=== PATIENT | female | born 1950 | race African-American/Black ===

== ENCOUNTER 2022-07-05 16:29 | Inpatient (IN) | payer MEDICARE, OTHER ==
[~2022-07-05] VITALS: Ht 170.2 cm; Wt 130.2 kg
--- NOTE | 2022-07-05 16:52 | NUR ---
PT BIBRA FROM SNF TO ER BED 05 PER PATTERNMAKER REPORT, RECIEVE 911 CALL FROM FACILITY. NOTED ALTERED MENTAL STATUS, ONSET AT 1400 TODAY. PT VERBALLY RESPONSIVE., AAOX3. GOWNED AND PLACED ON MONITOR. VSS. AWAITING MD MARTINEZ.
--- NOTE | 2022-07-05 17:09 | NUR ---
DR LOPEZ AT BEDSIDE FOR EVAL.
--- NOTE | 2022-07-05 17:14 | NUR ---
IV LINE STARTED BLOOD DRAWN AND SENT TO LAB.
--- NOTE | 2022-07-05 17:17 | NUR ---
PT TO RADIOLOGY FOR HEAD CT SCAN VIA [facility].
[2022-07-05] MEDS ORDERED: IV NS 0.9% 1,000 ML BAG IV ONE (17:30)
[2022-07-05 17:39] LABS: BASOPHILS % (AUTO) 0.2 % (0.0-2.0); EOSINOPHILS % (AUTO) 0.4 % (0.0-6.0); HEMATOCRIT 34 % (33-45); HEMOGLOBIN 10.8 g/dL (11.5-14.8); LYMPHOCYTES # (AUTO) 0.7 K/uL (0.8-4.8); LYMPHOCYTES % (AUTO) 11.7 % (20.0-44.0); MEAN CORPUSCULAR HGB CONC 31 g/dl (31.0-36.0); MEAN CORPUSCULAR VOLUME 88 fL (82-100); MONOCYTES # (AUTO) 0.8 K/uL (0.1-1.30); MONOCYTES % (AUTO) 13.6 % (2.0-12.0); NEUTROPHILS # (AUTO) 4.4 K/uL (1.8-8.9); NEUTROPHILS % (AUTO) 74.1 % (43.0-81.0); PLATELET COUNT (AUTO) 423 K/uL (150-450); RED BLOOD CELL COUNT(AUTO) 3.91 MIL/uL (4.0-5.2); WHITE BLOOD COUNT (AUTO) 5.9 K/uL (4.3-11.0)
[2022-07-05] MEDS ORDERED: BENZ-13 PO (18:01)
[2022-07-05] MEDS ORDERED: GABA-532 PO (18:01)
[2022-07-05] MEDS ORDERED: OMEG-167 PO (18:01)
[2022-07-05] MEDS ORDERED: CRAN425C6 PO (18:01)
[2022-07-05] MEDS ORDERED: ACET-2605 PO (18:01)
[2022-07-05] MEDS ORDERED: DIPH25CA51 PO (18:01)
[2022-07-05] MEDS ORDERED: POLY15DR40 EACHEYE (18:01)
[2022-07-05] MEDS ORDERED: FLUT9.9S (18:01)
[2022-07-05] MEDS ORDERED: CLOP75TA15 PO (18:01)
[2022-07-05] MEDS ORDERED: OXYB10TA30 PO (18:01)
[2022-07-05] MEDS ORDERED: MULT-447 PO (18:01)
[2022-07-05] MEDS ORDERED: UMEC1BLS IH (18:01)
[2022-07-05] MEDS ORDERED: ASCO-352 PO (18:01)
[2022-07-05] MEDS ORDERED: POLY17PO4 PO (18:01)
[2022-07-05] MEDS ORDERED: ONDA4TAB5 PO (18:01)
[2022-07-05] MEDS ORDERED: MAGN400T26 PO (18:01)
--- NOTE | 2022-07-05 18:16 | NUR ---
URINE SAMPLE COLLECTED AND SENT TO LAB
[2022-07-05 18:30] LABS: ALANINE AMINOTRANSFERASE 22 U/L (12-78); ALBUMIN 3.1 g/dL (3.4-5.0); ALKALINE PHOSPHATASE 97 U/L (46-116); ASPARTATE AMINOTRANSFERASE 29 U/L (15-37); BILIRUBIN,DIRECT 0.1 mg/dL (0.0-0.2); BILIRUBIN,TOTAL 0.3 mg/dL (0.2-1.0); CALCIUM, SERUM 9.4 mg/dL (8.5-10.1); CARBON DIOXIDE 27 mmol/L (21-32); CHLORIDE 95 mmol/L (98-107); GLUCOSE 151 mg/dL (74-106); POTASSIUM 3.9 mmol/L (3.5-5.1); SODIUM SERUM 131 mmol/L (136-145); UREA NITROGEN, BLOOD 8 mg/dL (7-18)
[2022-07-05 19:49] LABS: COLOR,URINE YELLOW (YELLOW)
[2022-07-05 19:50] LABS: LEUKOCYTE ESTERASE ,URINE 3+ (NEGATIVE); NITRITE, URINE NEGATIVE (NEGATIVE); PROTEIN,URINE 2+ mg/dl (NEGATIVE); UGLUCOSE NEGATIVE (NEGATIVE)
[2022-07-05 19:51] LABS: BILIRUBIN,URINE NEGATIVE (NEGATIVE); UROBILINOGEN,URINE 0.2 EU/dL (0.2)
[2022-07-05 19:54] LABS: RBC,URINE 51-80 /HPF (0-2); WBC,URINE 81-100 /HPF (0-3)
[2022-07-05 19:55] LABS: BACTERIA,URINE 3+ /HPF (None Seen)
[2022-07-05] MEDS ORDERED: IV NS 0.9% 1,000 ML IV ONE (20:30)
[2022-07-05] MEDS ORDERED: CEFTRIAXONE 1GM BAG (ER ONLY) 1 GM/50 ML PIGGYBACK IV ONE (20:30)
[2022-07-05] MEDS ORDERED: MORPHINE SULFATE INJ 4 MG/ML DISP.SYRIN ONE (20:44)
[2022-07-05] MEDS ORDERED: CEFTRIAXONE 1GM BAG (ER ONLY) 50 ML IV ONE (20:44)
[2022-07-05] MEDS ORDERED: ONDANSETRON HCL/PF 4 MG/2 ML VIAL ONE (20:44)
--- NOTE | 2022-07-05 20:49 | NUR ---
INFLUENZA SWAB DONE AND SENT TO LAB
[2022-07-05] MEDS ORDERED: MORPHINE SULFATE INJ 2 MG/ML DISP.SYRIN IV ONE (21:00)
[2022-07-05] MEDS ORDERED: ONDANSETRON HCL/PF 4 MG/2 ML VIAL IV ONE ×2 (21:00)
--- NOTE | 2022-07-05 22:17 | NUR ---
REPORT GIVEN TO RN
--- NOTE | 2022-07-05 22:18 | NUR ---
PATIENT BEING TRANSFFERRED TO 308
[2022-07-05] MEDS ORDERED: diphenhydrAMINE HCL 25 MG CAPSULE PO PRN (22:30)
[2022-07-05] MEDS ORDERED: BENZONATATE 100 MG CAPSULE PO PRN (22:30)
[2022-07-05] MEDS ORDERED: POLYETHYLENE GLYCOL 3350 17 GM POWD.PACK PO PRN (22:30)
[2022-07-05] MEDS ORDERED: ACETAMINOPHEN ES 500 MG TABLET PO PRN (22:30)
--- NOTE | 2022-07-05 22:34 | NUR ---
RN NOTE; RECEIVED PATIENT FROM ER WITH LALY 2-3,JOLENE WELL ON RM AIR,NO SIGN SOB/DISTRESS NOTED,NO COMPLAIN OF PAIN/DISCOMFORT AT THIS TIME,IV ACCESS ON LAC 20G PATENT AND INTACT,PT WAS OREINT THE RM AND VERBALLY UNDERSTANDING,SAFETY MEASURE IN PLACE,CALL LIGHT WITHIN REACH,WILL CONTINUE TO MONITOR.
[2022-07-05] MEDS ORDERED: IV NS 0.9% 1,000 ML IV PRN (23:00)
[2022-07-05] MEDS ORDERED: ACETAMINOPHEN 325 MG TABLET PO PRN (23:00)
[2022-07-05] MEDS ORDERED: MAG HYDROX/AL HYDROX/SIMETH 30 ML UDC PO PRN (23:00)
[2022-07-05] MEDS ORDERED: Z GUARD REMEDY 4 OZ OINT TP PRN (23:00)
[2022-07-05] MEDS ORDERED: ZOLPIDEM TARTRATE 5 MG TABLET PO PRN (23:00)
[2022-07-05] MEDS ORDERED: DEXTROSE 50%-WATER 50 ML DISP.SYRIN IV PRN (23:00)
[2022-07-05] MEDS ORDERED: MAGNESIUM HYDROXIDE 30 ML UDC PO PRN (23:00)
[2022-07-05] MEDS ORDERED: ONDANSETRON HCL/PF 4 MG/2 ML VIAL IVP PRN (23:00)
[2022-07-05] MEDS: ENOXAPARIN SODIUM 40 MG/0.4 ML DISP.SYRIN SQ SCH (23:59)
[2022-07-06] VITALS: BP 132/72
[2022-07-06 04:00] VITALS: BP 128/75
[2022-07-06 06:20] LABS: BASOPHILS % (AUTO) 0.3 % (0.0-2.0); EOSINOPHILS % (AUTO) 0.2 % (0.0-6.0); HEMATOCRIT 32 % (33-45); HEMOGLOBIN 10.1 g/dL (11.5-14.8); LYMPHOCYTES # (AUTO) 1.3 K/uL (0.8-4.8); LYMPHOCYTES % (AUTO) 22.5 % (20.0-44.0); MEAN CORPUSCULAR HGB CONC 31 g/dl (31.0-36.0); MEAN CORPUSCULAR VOLUME 90 fL (82-100); MONOCYTES # (AUTO) 0.9 K/uL (0.1-1.30); MONOCYTES % (AUTO) 14.6 % (2.0-12.0); NEUTROPHILS # (AUTO) 3.6 K/uL (1.8-8.9); NEUTROPHILS % (AUTO) 62.4 % (43.0-81.0); PLATELET COUNT (AUTO) 365 K/uL (150-450); WHITE BLOOD COUNT (AUTO) 5.8 K/uL (4.3-11.0)
--- NOTE | 2022-07-06 06:21 | NUR ---
RN CLOSING NOTE; PATIENT IN BED SLEEPING BUT EASY TO AROUSED,AOX3 ABLE TO MAKE NEEDS KNOWN,JOLENE WELL ON RM AIR,NO SIGN SOB/DISTRESS NOTED,NO COMPLAINED OF PAIN/DISCOMFORT DURING SHIFT,IV ACCESS ON LH 20G PATENT AND INTACT,RUNNING NS @75ML/HR,JOLENE WELL,DUE MEDS GIVEN ORDER,ALL NEEDS ATTENDED,SAFETY MEASURE IN PLACE,CALL LIGHT WITHIN REACH,WILL ENDORSED TO NEXT SHIFT.
[2022-07-06 06:53] LABS: CALCIUM, SERUM 8.5 mg/dL (8.5-10.1); CARBON DIOXIDE 25 mmol/L (21-32); CHLORIDE 100 mmol/L (98-107); CREATININE 0.9 mg/dL (0.6-1.3); GLUCOSE 110 mg/dL (74-106); MAGNESIUM 2.2 mg/dL (1.8-2.4); PHOSPHORUS 3.6 mg/dL (2.5-4.9); POTASSIUM 3.8 mmol/L (3.5-5.1); SODIUM SERUM 134 mmol/L (136-145); UREA NITROGEN, BLOOD 8 mg/dL (7-18)
--- NOTE | 2022-07-06 07:15 | NUR ---
RN open NOTE; PATIENT IN BED SLEEPING BUT EASY TO AROUSED,AOX3 ABLE TO MAKE NEEDS KNOWN,TOLERATING WELL ON ROOM AIR,NO SIGN SOB/DISTRESS NOTED,NO COMPLAINED OF PAIN/DISCOMFORT DURING SHIFT,IV ACCESS ON LH 20G PATENT AND INTACT,RUNNING NS @75ML/HR,JOLENE WELL,SAFETY MEASURE IN PLACE,CALL LIGHT WITHIN REACH,WILL COMNTINUE TO MONITOR
[2022-07-06 07:43] LABS: HDL CHOLESTEROL 38 mg/dL (40-60); LDL 93 mg/dL (0-99); TRIGLYCERIDES 86 mg/dL (30-150)
[2022-07-06 08:00] VITALS: BP 123/65
[2022-07-06 08:10] LABS: CHOLESTEROL 148 mg/dL (<200)
[2022-07-06] MEDS: BLOOD SUGAR DIAGNOSTIC 1 EACH STRIP IN SCH ×4 (08:18→22:15)
[2022-07-06] MEDS: INSULIN REGULAR, HUMAN 100 UNIT/ML 3 ML VIAL SQ PRN ×3 (08:19→22:19)
[2022-07-06] MEDS: MULTIVIT W/MINERALS 1 TAB TABLET PO SCH (08:37)
[2022-07-06] MEDS: PANTOPRAZOLE 40 MG VIAL IV SCH (08:37)
[2022-07-06] MEDS: ASCORBIC ACID 500 MG TABLET PO SCH (08:37)
[2022-07-06] MEDS: MAGNESIUM OXIDE 400 MG TABLET PO SCH ×2 (08:37→16:13)
[2022-07-06] MEDS: CLOPIDOGREL BISULFATE 75 MG TABLET PO SCH (08:37)
[2022-07-06] MEDS: POLYVINYL ALCOHOL 15 ML BOTTLE EACHEYE SCH ×2 (08:39→16:13)
[2022-07-06] MEDS ORDERED: Medication Not On Formulary EA (Cranberry Extract (Cranberry) 425 MG) PO SCH (09:00)
[2022-07-06] MEDS ORDERED: Medication Not On Formulary EA (Omega-3 Fatty Acids/Fish Oil (Fish Oil 1,000 Mg Softgel) PO SCH (09:00)
[2022-07-06] MEDS ORDERED: GUAIFENESIN/D-METHORPHAN HB 5 ML UDC PO PRN (11:30)
[2022-07-06] MEDS: GUAIFENESIN LA 600 MG TABLET.SA PO SCH ×2 (11:55→20:51)
[2022-07-06] MEDS: methylPREDNISolone SOD SUCC 125 MG/2ML VIAL IV SCH ×2 (12:30→20:51)
[2022-07-06] MEDS: ALBUTEROL FS 2.5 MG/3 ML VIAL.NEB NEB SCH ×2 (14:04→19:49)
[2022-07-06] MEDS: IPRATROPIUM NEB FS 0.5 MG/2.5 ML AMPUL.NEB NEB SCH ×2 (14:04→19:49)
[2022-07-06 15:31] LABS: LYMPHOCYTES % (MANUAL) 19 % (16-48); MONOCYTES % (MANUAL) 9 % (0-11.0); NEUTROPHILS % (MANUAL) 72 (42-76)
[2022-07-06 16:00] VITALS: BP 131/64
[2022-07-06] MEDS: OSELTAMIVIR PHOSPHATE 75 MG CAPSULE PO SCH (16:13)
[2022-07-06] MEDS: GABAPENTIN 100 MG CAPSULE PO SCH (17:34)
--- NOTE | 2022-07-06 18:29 | NUR ---
RN CLOSING NOTE PATIENT IN BED ,AOX3 ABLE TO MAKE NEEDS KNOWN,ON O2 2L/M VIA N/C TOLERATING WELL ,NO SIGN SOB/DISTRESS NOTED,NO COMPLAINED OF PAIN/DISCOMFORT DURING SHIFT,IV ACCESS ON LH 20G PATENT AND INTACT,ALL,DUE MEDS GIVEN ORDER,ALL NEEDS ATTENDED,SAFETY MEASURE IN PLACE,CALL LIGHT WITHIN REACH,WILL ENDORSED TO NEXT SHIFT.
--- NOTE | 2022-07-06 19:30 | NUR ---
NURSING SPECIALIST OPENING NOTE RECEIVED PATIENT IN BED, WITH HOB ELEVATED, AWAKE, ALERT AND ORIENTED X4. ABLE TO COMMUNICATE NEEDS WITH THE STAFFS. AFEBRILE AND NOT IN ANY FORM OF ACUTE DISTRESS. ON O2 INHALATION VIA NASAL CANNULA AT 2LPM. MAINTAINED ON DROPLET ISOLATION D/T (+) INFLUENZA VIRUS. WITH IV ACCESS ON L HAND-SL. SAFETY MEASURES IN PLACE. KEPT BED IN LOCKED AND IN LOW POSITION TO REDUCE INJURY. SIDE RAILS UP X2. ADVISED TO USE THE CALL LIGHT WHEN IN NEED OF ASSISTANCE.
[2022-07-06] MEDS: CEFTRIAXONE 1 G in IV D5W 50 ML IV SCH (20:50)
[2022-07-06] MEDS: ENOXAPARIN SODIUM 40 MG/0.4 ML DISP.SYRIN SQ SCH (20:52)
[2022-07-07] MEDS: methylPREDNISolone SOD SUCC 125 MG/2ML VIAL IV SCH ×3 (04:43→20:57)
[2022-07-07] MEDS: BLOOD SUGAR DIAGNOSTIC 1 EACH STRIP IN SCH ×4 (06:31→22:18)
[2022-07-07] MEDS: INSULIN REGULAR, HUMAN 100 UNIT/ML 3 ML VIAL SQ PRN ×4 (06:32→22:21)
--- NOTE | 2022-07-07 06:41 | NUR ---
HELPER SHEAR OPERATOR CLOSING NOTE PATIENT IN BED, WITH HOB ELEVATED, ASLEEP BUT EASY TO AROUSE AND RESPONSIVE. ABLE TO COMMUNICATE NEEDS WITH THE STAFFS. AFEBRILE AND NOT IN ANY FORM OF ACUTE DISTRESS. ON O2 INHALATION VIA NASAL CANNULA AT 2LPM. ON TELE MONITORING WITH CURRENT READING OF SR 74 WITH BBB AND PAC MAINTAINED ON DROPLET ISOLATION D/T (+) INFLUENZA A VIRUS. WITH IV ACCESS ON L HAND-SL. MONITORED FOR ANY S/SX. OF HYPO/HYPERGLYCEMIA. MEDICATED ORDERED. ON IV ATB, MONITORED FOR ANY ADVERSE REACTION. TURNED AND REPOSITIONED EVERY 2 HOURS AND TOLERATED TO PROMOTE PROPER CIRCULATION AND COMFORT. SAFETY MEASURES IN PLACE. KEPT BED IN LOCKED AND IN LOW POSITION TO REDUCE INJURY. SIDE RAILS UP X2. ADVISED TO USE THE CALL LIGHT WHEN IN NEED OF ASSISTANCE. ALL NURSING NEEDS ATTENDED. ENDORSED TO INCOMING SHIFT FOR CONTINUITY OF CARE.
[2022-07-07 06:49] LABS: BASOPHILS % (AUTO) 0.1 % (0.0-2.0); HEMATOCRIT 32 % (33-45); HEMOGLOBIN 10.3 g/dL (11.5-14.8); LYMPHOCYTES # (AUTO) 0.8 K/uL (0.8-4.8); LYMPHOCYTES % (AUTO) 25.1 % (20.0-44.0); MEAN CORPUSCULAR HGB CONC 32 g/dl (31.0-36.0); MEAN CORPUSCULAR VOLUME 88 fL (82-100); MONOCYTES # (AUTO) 0.4 K/uL (0.1-1.30); NEUTROPHILS # (AUTO) 2.1 K/uL (1.8-8.9); NEUTROPHILS % (AUTO) 63.8 % (43.0-81.0); PLATELET COUNT (AUTO) 429 K/uL (150-450); RED BLOOD CELL COUNT(AUTO) 3.64 MIL/uL (4.0-5.2); WHITE BLOOD COUNT (AUTO) 3.4 K/uL (4.3-11.0)
[2022-07-07 07:00] VITALS: BP 131/70
[2022-07-07 07:29] LABS: CALCIUM, SERUM 9.6 mg/dL (8.5-10.1); CREATININE 0.9 mg/dL (0.6-1.3); MAGNESIUM 2.6 mg/dL (1.8-2.4); PHOSPHORUS 3.6 mg/dL (2.5-4.9); POTASSIUM 4.4 mmol/L (3.5-5.1)
[2022-07-07] MEDS: ALBUTEROL FS 2.5 MG/3 ML VIAL.NEB NEB SCH ×3 (07:49→20:51)
[2022-07-07] MEDS: IPRATROPIUM NEB FS 0.5 MG/2.5 ML AMPUL.NEB NEB SCH ×3 (07:49→20:51)
--- NOTE | 2022-07-07 07:50 | NUR ---
RN OPENING NOTE PATIENT AWAKE IN BED RESTING AT THE MOMENT A/O X 3. NO S/S OF PAIN NOTED AT THIS TIME. ON 2L OXYGEN VIA NC, NO DISTRESS OR SHORTNESS OF BREATH NOTED. IV ACCESS L HAND, INTACT, PATENT AND FLUSHING WELL. PATIENT HAVE A EXTERNAL SMALL ARMS REPAIRER WITH CURRENT READING OF SR WITH BBB, PAC AND HR OF 74L. FALL AND SAFETY MEASURES IN PLACE, BED ALARM ON, BED IN LOW AND LOCK POSITION, CALL LIGHT AND TABLE WITHIN EASY REACH, SIDE RAILS X2. WILL CONTINUE TO MONITOR.
[2022-07-07] MEDS: MAGNESIUM OXIDE 400 MG TABLET PO SCH ×2 (09:48→17:10)
[2022-07-07] MEDS: GUAIFENESIN LA 600 MG TABLET.SA PO SCH ×2 (09:48→20:57)
[2022-07-07] MEDS: MULTIVIT W/MINERALS 1 TAB TABLET PO SCH (09:48)
[2022-07-07] MEDS: ASCORBIC ACID 500 MG TABLET PO SCH (09:48)
[2022-07-07] MEDS: PANTOPRAZOLE 40 MG VIAL IV SCH (09:48)
[2022-07-07] MEDS: CLOPIDOGREL BISULFATE 75 MG TABLET PO SCH (09:49)
[2022-07-07] MEDS: OSELTAMIVIR PHOSPHATE 75 MG CAPSULE PO SCH ×2 (09:49→17:10)
[2022-07-07] MEDS: POLYVINYL ALCOHOL 15 ML BOTTLE EACHEYE SCH ×2 (09:50→17:00)
[2022-07-07 16:00] VITALS: BP 123/54
[2022-07-07] MEDS: GABAPENTIN 100 MG CAPSULE PO SCH (17:10)
--- NOTE | 2022-07-07 19:40 | NUR ---
RN CLOSING NOTE PATIENT AWAKE IN BED RESTING AT THE MOMENT A/O X 3. NO S/S OF PAIN NOTED AT THIS TIME. ON 2L OXYGEN VIA NC, NO DISTRESS OR SHORTNESS OF BREATH NOTED. IV ACCESS R HAND #22G, INTACT, PATENT AND FLUSHING WELL. PATIENT HAVE A EXTERNAL GEOLOGY ASSOCIATE WITH CURRENT READING OF SR WITH BBB AND HR OF 67. SCHEDULE MEDICATIONS ADMINISTERED. FALL AND SAFETY MEASURES IN PLACE, BED ALARM ON, BED IN LOW AND LOCK POSITION, CALL LIGHT AND TABLE WITHIN EASY REACH, SIDE RAILS X2. WILL ENDORSE TO NATIONAL OPELINT ANALYST.
[2022-07-07 20:00] VITALS: BP 117/64
[2022-07-07] MEDS: CEFTRIAXONE 1 G in IV D5W 50 ML IV SCH (20:12)
[2022-07-07] MEDS: MUPIROCIN OINT 2% 22 GM TUBE NS SCH (20:59)
[2022-07-07] MEDS: ENOXAPARIN SODIUM 40 MG/0.4 ML DISP.SYRIN SQ SCH (20:59)
[2022-07-07] MEDS: INSULIN GLARGINE, 100 UNIT/ML CARTRIDGE SQ SCH (22:20)
[2022-07-08] VITALS: BP 120/71
[2022-07-08 04:00] VITALS: BP 135/75
[2022-07-08] MEDS: methylPREDNISolone SOD SUCC 125 MG/2ML VIAL IV SCH ×3 (04:45→20:18)
--- NOTE | 2022-07-08 06:30 | NUR ---
LOGGING CONTRACTOR CLOSING NOTE PATIENT IN BED, WITH HOB ELEVATED, ASLEEP BUT EASY TO AROUSE AND RESPONSIVE. ABLE TO COMMUNICATE NEEDS WITH THE STAFFS. AFEBRILE AND NOT IN ANY FORM OF ACUTE DISTRESS. BREATHING EVEN AND NON LABORED. ON O2 INHALATION VIA NASAL CANNULA AT 2LPM. NO C/O SOB/WHEEZING NOTED. MAINTAINED ON DROPLET ISOLATION D/T (+) INFLUENZA VIRUS. WITH IV ACCESS ON R HAND-SL. SAFETY MEASURES IN PLACE. MONITORED FOR S/SX. OF HYPO/HYPERGLYCEMIA. MEDICATED ORDERED. KEPT BED IN LOCKED AND IN LOW POSITION TO REDUCE INJURY. SIDE RAILS UP X2. ADVISED TO USE THE CALL LIGHT WHEN IN NEED OF ASSISTANCE. ALL NURSING NEEDS ATTENDED. ENDORSED TO INCOMING SHIFT FOR CONTINUITY OF CARE.
[2022-07-08] MEDS: BLOOD SUGAR DIAGNOSTIC 1 EACH STRIP IN SCH ×4 (06:41→21:31)
[2022-07-08] MEDS: INSULIN REGULAR, HUMAN 100 UNIT/ML 3 ML VIAL SQ PRN ×4 (06:48→21:26)
[2022-07-08] MEDS: ALBUTEROL FS 2.5 MG/3 ML VIAL.NEB NEB SCH ×3 (07:14→19:50)
[2022-07-08] MEDS: IPRATROPIUM NEB FS 0.5 MG/2.5 ML AMPUL.NEB NEB SCH ×3 (07:14→19:50)
--- NOTE | 2022-07-08 07:40 | NUR ---
AUTOMATIC TIRE TESTER OPENING NOTE RECEIVED PATIENT IN BED, WITH HOB ELEVATED, AWAKE, ALERT AND ORIENTED X4. ABLE TO COMMUNICATE NEEDS WITH THE STAFFS. AFEBRILE AND NOT IN ANY FORM OF ACUTE DISTRESS. BREATHING EVEN AND NON LABORED. NO C/O SOB/WHEEZING NOTED. MAINTAINED ON DROPLET ISOLATION D/T (+) INFLUENZA VIRUS. WITH IV ACCESS ON R HAND-SL. SAFETY MEASURES IN PLACE. KEPT BED IN LOCKED AND IN LOW POSITION TO REDUCE INJURY. SIDE RAILS UP X2. ADVISED TO USE THE CALL LIGHT WHEN IN NEED OF ASSISTANCE.
[2022-07-08 08:30] VITALS: BP 136/76
[2022-07-08] MEDS: OSELTAMIVIR PHOSPHATE 75 MG CAPSULE PO SCH ×3 (09:00→16:15)
[2022-07-08] MEDS: MULTIVIT W/MINERALS 1 TAB TABLET PO SCH (09:12)
[2022-07-08] MEDS: ASCORBIC ACID 500 MG TABLET PO SCH (09:12)
[2022-07-08] MEDS: CLOPIDOGREL BISULFATE 75 MG TABLET PO SCH (09:12)
[2022-07-08] MEDS: GUAIFENESIN LA 600 MG TABLET.SA PO SCH ×2 (09:12→20:17)
[2022-07-08] MEDS: MUPIROCIN OINT 2% 22 GM TUBE NS SCH ×2 (09:12→20:17)
[2022-07-08] MEDS: MAGNESIUM OXIDE 400 MG TABLET PO SCH ×2 (09:12→16:15)
[2022-07-08] MEDS: PANTOPRAZOLE 40 MG VIAL IV SCH (09:13)
[2022-07-08] MEDS: POLYVINYL ALCOHOL 15 ML BOTTLE EACHEYE SCH ×2 (09:15→16:23)
[2022-07-08 09:23] LABS: BASOPHILS % (AUTO) 0.1 % (0.0-2.0); HEMATOCRIT 34 % (33-45); HEMOGLOBIN 10.5 g/dL (11.5-14.8); LYMPHOCYTES # (AUTO) 0.9 K/uL (0.8-4.8); LYMPHOCYTES % (AUTO) 15.5 % (20.0-44.0); MEAN CORPUSCULAR HGB CONC 31 g/dl (31.0-36.0); MEAN CORPUSCULAR VOLUME 90 fL (82-100); MONOCYTES # (AUTO) 0.3 K/uL (0.1-1.30); MONOCYTES % (AUTO) 5.6 % (2.0-12.0); NEUTROPHILS # (AUTO) 4.5 K/uL (1.8-8.9); NEUTROPHILS % (AUTO) 78.8 % (43.0-81.0); PLATELET COUNT (AUTO) 391 K/uL (150-450); RED BLOOD CELL COUNT(AUTO) 3.73 MIL/uL (4.0-5.2); WHITE BLOOD COUNT (AUTO) 5.7 K/uL (4.3-11.0)
[2022-07-08 09:36] LABS: CALCIUM, SERUM 9.5 mg/dL (8.5-10.1); CARBON DIOXIDE 28 mmol/L (21-32); CHLORIDE 100 mmol/L (98-107); CREATININE 1.2 mg/dL (0.6-1.3); GLUCOSE 289 mg/dL (74-106); MAGNESIUM 2.3 mg/dL (1.8-2.4); PHOSPHORUS 2.6 mg/dL (2.5-4.9); POTASSIUM 4.4 mmol/L (3.5-5.1); SODIUM SERUM 134 mmol/L (136-145); UREA NITROGEN, BLOOD 20 mg/dL (7-18)
[2022-07-08] MEDS ORDERED: OSELTAMIVIR PHOSPHATE 75 MG CAPSULE PO SCH (10:00)
[2022-07-08 11:15] LABS: ABG BASE EXCESS 0.6 mmol/L; ABG PH 7.448 (7.350-7.450); ABG PO2 92.3 mmHg (75.0-100.0); COHb 0.2 % (0.5-1.5); MetHb 0.3 % (0.0-1.5); SITE, ABG Right Radial; VENT MODE, BG nasal cannula
--- NOTE | 2022-07-08 11:29 | NUR ---
placed into room air due to 100% spo2 on 2 lpm nasal cannula. Addendum: 07/08/22 at 1129 by LULY FRANK RT Amended: Links added.
[2022-07-08 12:00] VITALS: BP 123/75
[2022-07-08 16:33] VITALS: BP 127/72
[2022-07-08] MEDS: GABAPENTIN 100 MG CAPSULE PO SCH (17:02)
--- NOTE | 2022-07-08 18:10 | NUR ---
CAR MECHANIC CLOSING NOTE PATIENT AWAKE IN BED A/O X4. ON RA, TOLERATING WELL AT 95% SPO2 WITH HOB ELEVATED, PATIENT STATES "I AM GETTING BETTER AND THERE IS NO NEED FOR OXYGEN". ABLE TO COMMUNICATE NEEDS WITH THE STAFFS. AFEBRILE AND NOT IN ANY FORM OF ACUTE DISTRESS. BREATHING EVEN AND NON LABORED. NASAL CANNULA AT NO C/O SOB/WHEEZING NOTED. MAINTAINED ON DROPLET ISOLATION D/T (+) INFLUENZA VIRUS. WITH IV ACCESS ON R HAND-SL. SAFETY MEASURES IN PLACE. MONITORED FOR S/SX. OF HYPO/HYPERGLYCEMIA. DUE MEDS GIVEN. NO FURTHER COMPLAINS. KEPT BED IN LOCKED AND IN LOW POSITION TO REDUCE INJURY. SIDE RAILS UP X2. ADVISED TO USE THE CALL LIGHT WHEN IN NEED OF ASSISTANCE. ENDORSED.
--- NOTE | 2022-07-08 19:52 | NUR ---
RN OPENING NOTE; RECEIVED PT IN BED AAOX3,JOLENE WELL ON 2L 02 VIA NC SATING 97%,NO SIGN SOB/DISTRESS NOTED,NO COMPLAIN OF PAIN/DISCOMFORT AT THIS TIME,IV ACCESS ON RT HAND 22G PATENT AND INTACT,SAFETY MEASURE IN PLACE,CALL LIGHT WITHIN REACH,WILL CONTINUE TO MONITOR
[2022-07-08 20:00] VITALS: BP 127/59
[2022-07-08] MEDS: CEFTRIAXONE 1 G in IV D5W 50 ML IV SCH (20:16)
[2022-07-08] MEDS: ENOXAPARIN SODIUM 40 MG/0.4 ML DISP.SYRIN SQ SCH (20:20)
[2022-07-08] MEDS: INSULIN GLARGINE, 100 UNIT/ML CARTRIDGE SQ SCH (21:28)
[2022-07-09] MEDS: methylPREDNISolone SOD SUCC 125 MG/2ML VIAL IV SCH ×3 (04:56→20:55)
--- NOTE | 2022-07-09 06:17 | NUR ---
RN CLOSING NOTE; PATIENT IN BED AAOX4,JOLENE WELL ON 2L 02 VIA NC SATING 98%,NO SIGN SOB/DISTRESS NOTED,NO COMPLAIN OF PAIN/DISCOMFORT DURING SHIFT,DUE MEDS GIVEN ORDER,ALL NEEDS ATTENED,IV ACCESS ON RT HAND 22G PATENT AND INTACT,SAFETY MEASURE IN PLACE,CALL LIGHT WITHIN REACH,WILL ENDORSED TO NEXT SHIFT.
[2022-07-09] MEDS: INSULIN REGULAR, HUMAN 100 UNIT/ML 3 ML VIAL SQ PRN ×4 (06:38→21:19)
[2022-07-09] MEDS: BLOOD SUGAR DIAGNOSTIC 1 EACH STRIP IN SCH ×4 (06:41→21:11)
[2022-07-09 06:48] VITALS: BP 140/60
[2022-07-09 06:54] LABS: BASOPHILS % (AUTO) 0.1 % (0.0-2.0); HEMATOCRIT 33 % (33-45); HEMOGLOBIN 10.5 g/dL (11.5-14.8); LYMPHOCYTES # (AUTO) 1.5 K/uL (0.8-4.8); LYMPHOCYTES % (AUTO) 20.7 % (20.0-44.0); MEAN CORPUSCULAR HGB CONC 32 g/dl (31.0-36.0); MEAN CORPUSCULAR VOLUME 88 fL (82-100); MONOCYTES # (AUTO) 0.8 K/uL (0.1-1.30); MONOCYTES % (AUTO) 10.7 % (2.0-12.0); NEUTROPHILS # (AUTO) 4.9 K/uL (1.8-8.9); NEUTROPHILS % (AUTO) 68.5 % (43.0-81.0); PLATELET COUNT (AUTO) 435 K/uL (150-450); RED BLOOD CELL COUNT(AUTO) 3.77 MIL/uL (4.0-5.2); WHITE BLOOD COUNT (AUTO) 7.1 K/uL (4.3-11.0)
[2022-07-09] MEDS: ALBUTEROL FS 2.5 MG/3 ML VIAL.NEB NEB SCH ×3 (07:35→20:11)
[2022-07-09] MEDS: IPRATROPIUM NEB FS 0.5 MG/2.5 ML AMPUL.NEB NEB SCH ×3 (07:35→20:11)
--- NOTE | 2022-07-09 07:41 | NUR ---
OCEANOGRAPHER GEOLOGICAL CLOSING NOTE PATIENT AWAKE IN BED A/O X4. ON RA, TOLERATING WELL AT 96% SPO2 WITH HOB ELEVATED. ABLE TO COMMUNICATE NEEDS WITH THE STAFFS. AFEBRILE AND NOT IN ANY FORM OF ACUTE DISTRESS. BREATHING EVEN AND NON LABORED. NO C/O SOB/WHEEZING NOTED. MAINTAINED ON DROPLET ISOLATION D/T (+) INFLUENZA VIRUS. WITH IV ACCESS ON R HAND-SL. SAFETY MEASURES IN PLACE. MONITORED FOR S/SX. OF HYPO/HYPERGLYCEMIA. KEPT BED IN LOCKED AND IN LOW POSITION TO REDUCE INJURY. SIDE RAILS UP X2. ADVISED TO USE THE CALL LIGHT WHEN IN NEED OF ASSISTANCE. WILL MONITOR. Addendum: 07/09/22 at 0744 by YEVGENIY HARDWICK RN RN OPENING NOTES
[2022-07-09 08:00] LABS: CALCIUM, SERUM 9.9 mg/dL (8.5-10.1); CREATININE 0.9 mg/dL (0.6-1.3); MAGNESIUM 2.4 mg/dL (1.8-2.4); PHOSPHORUS 2.7 mg/dL (2.5-4.9); POTASSIUM 4.1 mmol/L (3.5-5.1)
[2022-07-09] MEDS: PANTOPRAZOLE 40 MG TABLET.DR PO SCH (08:09)
[2022-07-09 08:26] VITALS: BP 153/79
[2022-07-09] MEDS: ASCORBIC ACID 500 MG TABLET PO SCH (08:46)
[2022-07-09] MEDS: POLYVINYL ALCOHOL 15 ML BOTTLE EACHEYE SCH ×2 (08:46→17:54)
[2022-07-09] MEDS: MUPIROCIN OINT 2% 22 GM TUBE NS SCH ×2 (08:46→17:53)
[2022-07-09] MEDS: GUAIFENESIN LA 600 MG TABLET.SA PO SCH ×2 (08:46→20:55)
[2022-07-09] MEDS: MAGNESIUM OXIDE 400 MG TABLET PO SCH ×2 (08:47→17:54)
[2022-07-09] MEDS: OSELTAMIVIR PHOSPHATE 75 MG CAPSULE PO SCH ×2 (08:47→17:54)
[2022-07-09] MEDS: CLOPIDOGREL BISULFATE 75 MG TABLET PO SCH (08:47)
[2022-07-09] MEDS: MULTIVIT W/MINERALS 1 TAB TABLET PO SCH (08:47)
[2022-07-09] MEDS: NITROFURANTOIN/MONOHYDRATE MACROCRYSTALS 100 MG CAPSULE PO SCH ×2 (12:09→20:55)
[2022-07-09] MEDS ORDERED: OSEL75CA PO (15:17)
[2022-07-09] MEDS ORDERED: NITR100C15 PO (15:17)
[2022-07-09] MEDS ORDERED: CEFU500T66 PO (15:17)
[2022-07-09] MEDS ORDERED: PRED20TA PO (15:17)
[2022-07-09 16:03] VITALS: BP 150/76
[2022-07-09] MEDS: GABAPENTIN 100 MG CAPSULE PO SCH (17:54)
--- NOTE | 2022-07-09 19:46 | NUR ---
ARTIFICIAL LIMB FITTER CLOSING NOTE PATIENT AWAKE IN BED A/O X4. ON RA, TOLERATING WELL AT 95% SPO2 WITH HOB ELEVATED. ABLE TO COMMUNICATE NEEDS WITH THE STAFFS. AFEBRILE AND NOT IN ANY FORM OF ACUTE DISTRESS. BREATHING EVEN AND NON LABORED. NASAL CANNULA AT NO C/O SOB/WHEEZING NOTED. MAINTAINED ON DROPLET ISOLATION D/T (+) INFLUENZA VIRUS. WITH IV ACCESS ON R HAND-SL. SAFETY MEASURES IN PLACE. MONITORED FOR S/SX. OF HYPO/HYPERGLYCEMIA. DUE MEDS GIVEN. NO FURTHER COMPLAINS. KEPT BED IN LOCKED AND IN LOW POSITION TO REDUCE INJURY. SIDE RAILS UP X2. ADVISED TO USE THE CALL LIGHT WHEN IN NEED OF ASSISTANCE. ENDORSED.
--- NOTE | 2022-07-09 19:47 | NUR ---
COIL CONNECTOR OPENING NOTES RECEIVED PATIENT LAYING IN BED AWAKE. A/O X4. BREATHING EVEN AND NON-LABORED ON ROOM AIR. NOT IN APPARENT DISTRESS. NO PAIN OR DISCOMFORT NOTED. ON TELE MONITOR READING SINUS BRADYCARDIA WITH BBB AT 43 BPM. HAS RIGHT HAND IV ACCESS #22G AND SALINE LOCKED. NO S/S OF INFILTRATION NOTED. CURRENTLY ON DROPLET ISOLATION D/T (+) INFLUENZA VIRUS. SAFETY PRECAUTIONS IN PLACE: BED LOW AND LOCKED, SIDE RAILS UP X2, CALL LIGHT WITHIN REACH. WILL CONTINUE POC.
[2022-07-09 20:00] VITALS: BP 145/76
[2022-07-09] MEDS: ENOXAPARIN SODIUM 40 MG/0.4 ML DISP.SYRIN SQ SCH (20:57)
[2022-07-09] MEDS: INSULIN GLARGINE, 100 UNIT/ML CARTRIDGE SQ SCH (21:17)
[2022-07-10] VITALS: BP 146/74
--- NOTE | 2022-07-10 04:00 | NUR ---
LOADER DEMOLDER NOTES PATIENT REFUSED V/S. EXPLAINED RISKS AND BENEFITS, STILL REFUSED.
[2022-07-10] MEDS: methylPREDNISolone SOD SUCC 125 MG/2ML VIAL IV SCH ×2 (04:12→13:23)
[2022-07-10] MEDS: BLOOD SUGAR DIAGNOSTIC 1 EACH STRIP IN SCH ×4 (06:34→22:06)
[2022-07-10] MEDS: INSULIN REGULAR, HUMAN 100 UNIT/ML 3 ML VIAL SQ PRN ×4 (06:39→22:09)
--- NOTE | 2022-07-10 06:42 | NUR ---
LOWER SCHOOL MUSIC TEACHER CLOSING NOTES PATIENT LAYING IN BED ASLEEP, EASY TO AROUSE. ABLE TO VERBALIZE NEEDS. STABLE THROUGHOUT THE SHIFT. NO SOB OR . DENIES DIZZINESS. AFEBRILE. ON TELE MONITOR READING SINUS BRADYCARDIA AT 38-45 BPM. RIGHT HAND IV ACCESS #22G INTACT, PATENT AND FLUSHING. ALL DUE MEDS GIVEN AND NEEDS ATTENDED. SAFETY PRECAUTIONS MAINTAINED. WILL ENDORSE TO NEXT SHIFT FOR JOHN.
[2022-07-10 08:00] VITALS: BP 158/80
[2022-07-10] MEDS: IPRATROPIUM NEB FS 0.5 MG/2.5 ML AMPUL.NEB NEB SCH ×3 (08:18→20:29)
[2022-07-10] MEDS: ALBUTEROL FS 2.5 MG/3 ML VIAL.NEB NEB SCH ×3 (08:18→20:29)
--- NOTE | 2022-07-10 08:23 | NUR ---
EMERGENCY MEDICAL TECH OPENING NOTE RECEIVED PATIENT IN BED, WITH HOB ELEVATED, AWAKE, ALERT AND ORIENTED X4. ABLE TO COMMUNICATE NEEDS WITH THE STAFF. AFEBRILE AND NOT IN ANY FORM OF ACUTE DISTRESS. BREATHING EVEN AND NON LABORED. NO C/O SOB/WHEEZING NOTED. MAINTAINED ON DROPLET ISOLATION D/T (+) INFLUENZA VIRUS. WITH IV ACCESS ON R HAND-SL. SAFETY MEASURES IN PLACE. KEPT BED IN LOCKED AND IN LOW POSITION TO REDUCE INJURY. SIDE RAILS UP X 3. ADVISED TO USE THE CALL LIGHT WHEN IN NEED OF ASSISTANCE. PT'S LUNG SOUNDS MOSTLY CLEAR TO AUSCULTATION WITH EXPIRATORY WHEEZE HEARD ON LEFT UPPER LOBE. POSITIVE PULSES IN ALL 4 EXTREMITIES. PT REPORTED HAVING , "FLUFFY, SOFT , BROWN STOOL ", YESTERDAY. WILL CONTINUE TO MONITOR PATIENT.
[2022-07-10] MEDS: MAGNESIUM OXIDE 400 MG TABLET PO SCH ×2 (09:09→17:32)
[2022-07-10] MEDS: NITROFURANTOIN/MONOHYDRATE MACROCRYSTALS 100 MG CAPSULE PO SCH ×2 (09:09→20:59)
[2022-07-10] MEDS: GUAIFENESIN LA 600 MG TABLET.SA PO SCH ×2 (09:09→20:59)
[2022-07-10] MEDS: OSELTAMIVIR PHOSPHATE 75 MG CAPSULE PO SCH ×2 (09:09→17:31)
[2022-07-10] MEDS: MULTIVIT W/MINERALS 1 TAB TABLET PO SCH (09:09)
[2022-07-10] MEDS: ASCORBIC ACID 500 MG TABLET PO SCH (09:10)
[2022-07-10] MEDS: CLOPIDOGREL BISULFATE 75 MG TABLET PO SCH (09:10)
[2022-07-10] MEDS: MUPIROCIN OINT 2% 22 GM TUBE NS SCH ×2 (09:11→20:59)
[2022-07-10] MEDS: POLYVINYL ALCOHOL 15 ML BOTTLE EACHEYE SCH ×2 (09:13→18:43)
[2022-07-10] MEDS: PANTOPRAZOLE 40 MG TABLET.DR PO SCH (10:34)
[2022-07-10 12:00] VITALS: BP 140/90
[2022-07-10 16:00] VITALS: BP 116/60
[2022-07-10] MEDS ORDERED: prednisoLONE 5 MG/5 ML UDC PO ONE (16:00)
[2022-07-10] MEDS: predniSONE 20 MG TABLET PO SCH (16:10)
[2022-07-10] MEDS: GABAPENTIN 100 MG CAPSULE PO SCH (17:31)
--- NOTE | 2022-07-10 18:58 | NUR ---
CAR PILOT CLOSING NOTE PATIENT LAYING IN BED AWAKE. ABLE TO VERBALIZE NEEDS. STABLE THROUGHOUT THE SHIFT. NO SOB OR . DENIES DIZZINESS. AFEBRILE. TELE MONITOR REMOVED PER MD ORDER. PATIENT HAS DISCHARGE ORDER TO RETURN HOME TO HER BOARD AND CARE FACILITY. BED AVAILABLE TOMORROW. AMBULANCE TRANSPORT PROPERTY ECONOMIST SCHEDULED FOR 9:00 AM TOMORROW.. RIGHT HAND IV ACCESS #22G INFILTRATED AND WAS REMOVED. md AWARE AND DISCONTINUED NEED FOR IV ACCESS. STEROID SWITCHED TO PREDNISONE 20 MG PO TABLET DAILY. ALL DUE MEDS GIVEN AND NEEDS ATTENDED. SAFETY PRECAUTIONS MAINTAINED. WILL ENDORSE TO NEXT SHIFT FOR JOHN.
--- NOTE | 2022-07-10 19:15 | NUR ---
MS RN OPENING NOTES RECEIVED PATIENT LAYING IN BED AWAKE, IN SEMI SILVA'S POSITION. A/O X3-4. BREATHING EVEN AND NON-LABORED ON ROOM AIR. NOT IN APPARENT DISTRESS. NO C/O PAIN OR DISCOMFORT. NO IV ACCESS AT THIS TIME, HOSPITALIST RICHY HUFFMAN AWARE AND OKAY SINCE PATIENT WILL BE DISCHARGED TOMORROW. HAS PUREWICK CONNECTED TO CONTINUOUS SUCTION. SAFETY PRECAUTIONS IN PLACE: BED LOW AND LOCKED, SIDE RAILS UP X2, CALL LIGHT WITHIN REACH.
[2022-07-10 20:00] VITALS: BP 144/76
[2022-07-10] MEDS: ENOXAPARIN SODIUM 40 MG/0.4 ML DISP.SYRIN SQ SCH (21:00)
[2022-07-10] MEDS: INSULIN GLARGINE, 100 UNIT/ML CARTRIDGE SQ SCH (22:08)
[2022-07-11] VITALS: BP 136/79
[2022-07-11] MEDS: BLOOD SUGAR DIAGNOSTIC 1 EACH STRIP IN SCH ×4 (06:30→23:03)
[2022-07-11] MEDS: INSULIN REGULAR, HUMAN 100 UNIT/ML 3 ML VIAL SQ PRN ×4 (06:31→22:43)
--- NOTE | 2022-07-11 06:52 | NUR ---
MS RN CLOSING NOTES PATIENT ASLEEP IN BED, EASY TO AROUSE. ABLE TO VERBALIZE NEEDS. STABLE THROUGHOUT THE SHIFT. SATURATING AT 99% ON ROOM AIR. AFEBRILE. DISCHARGE SCHEDULED ON 07/12/22. CLEAR TARA URINE OUTPUT OF 900 ML NOTED. PERINEAL CARE RENDERED. ALL DUE MEDS GIVEN AND NEEDS ATTENDED. SAFETY PRECAUTIONS MAINTAINED. WILL ENDORSE TO NEXT SHIFT FOR JOHN.
--- NOTE | 2022-07-11 07:53 | NUR ---
MS RN OPENING NOTE RECEIVED PATIENT IN BED, WITH HOB ELEVATED, AWAKE, ALERT AND ORIENTED X4. ABLE TO COMMUNICATE NEEDS WITH THE STAFF. AFEBRILE AND NOT IN ANY FORM OF ACUTE DISTRESS. BREATHING EVEN AND NON LABORED. NO C/O SOB/WHEEZING NOTED. MAINTAINED ON DROPLET ISOLATION D/T (+) INFLUENZA VIRUS. NO IV ACCESS AND HOSPITALIST IS AWARE. SAFETY MEASURES IN PLACE. KEPT BED IN LOCKED AND IN LOW POSITION TO REDUCE INJURY. SIDE RAILS UP X 3. ADVISED TO USE THE CALL LIGHT WHEN IN NEED OF ASSISTANCE. PT'S LUNG SOUNDS MOSTLY CLEAR TO AUSCULTATION. POSITIVE PULSES IN ALL 4 EXTREMITIES. PT INFORMED OF DELAY OF DISCHARGE TO TOMORROW DUE LACK OF BARIATRIC GURNEY AVAILABLE FROM AMBULANCE. COVID SWAB SPECIMEN DELIVERED TO LAB. WILL CONTINUE TO MONITOR PATIENT.
[2022-07-11 08:00] VITALS: BP 152/74
[2022-07-11] MEDS: ALBUTEROL FS 2.5 MG/3 ML VIAL.NEB NEB SCH ×3 (08:27→19:59)
[2022-07-11] MEDS: IPRATROPIUM NEB FS 0.5 MG/2.5 ML AMPUL.NEB NEB SCH ×3 (08:27→19:59)
[2022-07-11] MEDS: PANTOPRAZOLE 40 MG TABLET.DR PO SCH (09:37)
[2022-07-11] MEDS: POLYVINYL ALCOHOL 15 ML BOTTLE EACHEYE SCH ×2 (09:37→17:04)
[2022-07-11] MEDS: GUAIFENESIN LA 600 MG TABLET.SA PO SCH ×2 (09:38→21:44)
[2022-07-11] MEDS: MAGNESIUM OXIDE 400 MG TABLET PO SCH ×2 (09:38→17:04)
[2022-07-11] MEDS: NITROFURANTOIN/MONOHYDRATE MACROCRYSTALS 100 MG CAPSULE PO SCH ×2 (09:38→21:44)
[2022-07-11] MEDS: MUPIROCIN OINT 2% 22 GM TUBE NS SCH ×2 (09:38→21:45)
[2022-07-11] MEDS: CLOPIDOGREL BISULFATE 75 MG TABLET PO SCH (09:38)
[2022-07-11] MEDS: ASCORBIC ACID 500 MG TABLET PO SCH (09:39)
[2022-07-11] MEDS: MULTIVIT W/MINERALS 1 TAB TABLET PO SCH (09:39)
[2022-07-11] MEDS: OSELTAMIVIR PHOSPHATE 75 MG CAPSULE PO SCH (09:39)
[2022-07-11] MEDS: predniSONE 20 MG TABLET PO SCH (09:43)
[2022-07-11 16:00] VITALS: BP 128/74
[2022-07-11] MEDS: GABAPENTIN 100 MG CAPSULE PO SCH (17:03)
--- NOTE | 2022-07-11 18:17 | NUR ---
MS RN CLOSING NOTE PATIENT LAYING IN BED AWAKE. ABLE TO VERBALIZE NEEDS. STABLE THROUGHOUT THE SHIFT. NO SOB NOR DISTRESS NOR C/O PAIN. DENIES DIZZINESS. AFEBRILE. PATIENT HAS DISCHARGE ORDER TO RETURN HOME TO HER BOARD AND CARE FACILITY. BED AVAILABLE TOMORROW, 07/12/22. AMBULANCE TRANSPORT WITH BARIATRIC GURNEY HEEL ATTACHER WOOD SCHEDULED FOR 08:45 AM TOMORROW, 07/12/22. NO IV ACCESS & HOSPITALIST IS AWARE. ALL DUE MEDS GIVEN AND NEEDS ATTENDED. SAFETY PRECAUTIONS MAINTAINED. SKIN CONTINUES TO REMAIN INTACT THROUGHOUT BODY.POC IS TO CONTINUE TAMIFLU MEDICATION AT HOME FACILITY AND TO HAVE OUTPATIENT SLEEP STUDY CONDUCTED. WILL ENDORSE TO NEXT SHIFT FOR JOHN.
[2022-07-11 20:00] VITALS: BP 138/81
--- NOTE | 2022-07-11 20:00 | NUR ---
MS RN OPENING NOTES RECEIVED PATIENT LYING AWAKE IN BED, IN SEMI SILVA'S POSITION. A/O X3-4. BREATHING EVEN AND NON-LABORED ON ROOM AIR. NOT IN APPARENT DISTRESS. NO C/O PAIN OR DISCOMFORT. NO IV ACCESS AT THIS TIME. FOR DC TOMORROW AM ONCE WITH BARIATRIC GURNEY. HAS PUREWICK CONNECTED TO CONTINUOUS SUCTION. SAFETY PRECAUTIONS IN PLACE: BED LOW AND LOCKED, SIDE RAILS UP X2, CALL LIGHT WITHIN REACH. WILL CONTINUE TO MONITOR.
[2022-07-11] MEDS: ENOXAPARIN SODIUM 40 MG/0.4 ML DISP.SYRIN SQ SCH (21:56)
[2022-07-11] MEDS: INSULIN GLARGINE, 100 UNIT/ML CARTRIDGE SQ SCH (23:39)
[2022-07-12] MEDS: INSULIN REGULAR, HUMAN 100 UNIT/ML 3 ML VIAL SQ PRN (06:25)
[2022-07-12] MEDS: BLOOD SUGAR DIAGNOSTIC 1 EACH STRIP IN SCH (06:29)
--- NOTE | 2022-07-12 06:48 | NUR ---
MS RN CLOSING NOTES PATIENT LYING AWAKE IN BED, IN SEMI SILVA'S POSITION. A/O X3-4. BREATHING EVEN AND NON-LABORED ON ROOM AIR. NOT IN APPARENT DISTRESS. NO PAIN OR DISCOMFORT. NO IV ACCESS AT THIS TIME. FOR DC TODAY AM ONCE WITH BARIATRIC GURNEY. HAS PUREWICK CONNECTED TO CONTINUOUS SUCTION. SAFETY PRECAUTIONS IN PLACE: BED LOW AND LOCKED, SIDE RAILS UP X2, CALL LIGHT WITHIN REACH. WILL ENDORSE TO NEXT SHIFT RN FOR JOHN.
[2022-07-12] MEDS: IPRATROPIUM NEB FS 0.5 MG/2.5 ML AMPUL.NEB NEB SCH ×2 (07:41→13:30)
[2022-07-12] MEDS: ALBUTEROL FS 2.5 MG/3 ML VIAL.NEB NEB SCH ×2 (07:41→13:30)
--- NOTE | 2022-07-12 07:42 | NUR ---
MS RN OPENING NOTES RECEIVED PATIENT LYING AWAKE IN BED, AOX4, WITH HEAD OF BED ELEVATED 45 DEGREES. ON ROOM AIR, NO NOTED RESPIRATORY DISTRESS, BREATHING EVEN AND NON-LABORED. NO C/O PAIN OR DISCOMFORT AT THIS TIME. NO IV ACCESS AT THIS TIME. PUREWICK CONNECTED TO CONTINUOUS SUCTION DRAINING ABOUT 200 CC OF LIGHT YELLOW URINE. FOR DC TODAY PER DOCUMENT PROCESSING SPECIALIST NURSE BACK TO THE SNF. DROPLET PRECAUTION OBSERVED. SAFETY PRECAUTIONS IN PLACE: BED LOW AND LOCKED, SIDE RAILS UP X2, CALL LIGHT WITHIN REACH. WILL CONTINUE TO MONITOR.
[2022-07-12] MEDS: PANTOPRAZOLE 40 MG TABLET.DR PO SCH (07:52)
[2022-07-12 08:00] VITALS: BP 102/63
[2022-07-12] MEDS: predniSONE 20 MG TABLET PO SCH (10:19)
[2022-07-12] MEDS: CLOPIDOGREL BISULFATE 75 MG TABLET PO SCH (10:19)
[2022-07-12] MEDS: ASCORBIC ACID 500 MG TABLET PO SCH (10:19)
[2022-07-12] MEDS: NITROFURANTOIN/MONOHYDRATE MACROCRYSTALS 100 MG CAPSULE PO SCH (10:19)
[2022-07-12] MEDS: MAGNESIUM OXIDE 400 MG TABLET PO SCH (10:19)
[2022-07-12] MEDS: MULTIVIT W/MINERALS 1 TAB TABLET PO SCH (10:19)
[2022-07-12] MEDS: GUAIFENESIN LA 600 MG TABLET.SA PO SCH (10:19)
[2022-07-12] MEDS: MUPIROCIN OINT 2% 22 GM TUBE NS SCH (10:20)
[2022-07-12] MEDS: POLYVINYL ALCOHOL 15 ML BOTTLE EACHEYE SCH (10:20)
--- NOTE | 2022-07-12 11:30 | NUR ---
MS METAL SANDER NOTE PT DISCHARGED TO [facility] IN STABLE CONDITION AOX4, ABLE TO MAKE NEEDS KNOWN, ON ROOM AIR WITH SPO2 OF 96%, NO SOB NOTED, NOT IN ANY FORM OF APPARENT DISTRESS. VITAL SIGN TAKEN, STABLE AND RECORDED. PT'S SKIN INTACT. NO PICTURES TAKEN. DENIES PAIN OR DISCOMFORT AT THIS TIME. ALL BELONGINGS ACCOUNTED FOR, FORM SIGNED. DISCHARGE INSTRUCTIONS RELAYED TO THE SNF RN CHRISTINA, PATIENT IS ALSO AWARE OF THE DISCHARGE PLANNING. MED. RECON ADDED. NO IV ACCESS FOR THIS PATIENT. PT LEFT THE UNIT AT AROUND 1125 VIA BARIATRIC GURNEY WITH 3 TECHNICAL ASSISTANCE CONSULTANT. CHARGE NURSE AND MD AWARE OF THE DC.
== END 2022-07-12 11:30 | DRG 193 ==
LOC: ER 16:33 → TELE 21:45 → MED 07-11 05:26
PROVIDERS: ADMIT Nurse Practitioner Acute Care; ATTEND Internal Medicine
DX: J10.1 Influenza due to other identified influenza virus with other respiratory manifestations (principal); G93.41 Metabolic encephalopathy; N39.0 Urinary tract infection, site not specified; E87.1 Hypo-osmolality and hyponatremia; J44.1 Chronic obstructive pulmonary disease with (acute) exacerbation; Z68.42 Body mass index [BMI] 45.0-49.9, adult; I48.0 Paroxysmal atrial fibrillation; E11.9 Type 2 diabetes mellitus without complications; D64.9 Anemia, unspecified; E66.01 Morbid (severe) obesity due to excess calories; G47.33 Obstructive sleep apnea (adult) (pediatric); Z20.822 Contact with and (suspected) exposure to COVID-19; Z88.0 Allergy status to penicillin; E86.0 Dehydration; B96.20 Unspecified Escherichia coli [E. coli] as the cause of diseases classified elsewhere
CPT/HCPCS: 36415; 36600; 70450-TC; 71045-TC; 80048-TC; 80061-TC; 80076-TC; 81001; 82803-TC; 82962-TC; 83605-TC; 83735-TC; 83880; 84100-TC; 84443-TC; 84484-TC; 85025-TC; 87040-TC; 87081-TC; 87086-TC; 94799-TC; 97110-TC; 97112-TC; 97116-TC; 97530-TC; C9113; C9803; G0378; J0696; J1650; J1815; J2270; J2405; J2930; J7030; J7050; J7060